=== PATIENT | male | born 1970 | race Caucasian/White ===

== ENCOUNTER 2019-09-30 15:00 | Emergency (ER) | payer OTHER ==
[~2019-09-30] VITALS: Ht 182.9 cm; Wt 83.9 kg
--- NOTE | 2019-09-30 15:10 | NUR ---
BIB RA FROM HOME,LACERATION/AVULSION,RIGHT THUMB. PATIENT A/OX4, BREATHING EVEN AND UNLABORED, NO SOB NOTED. NEEDS ATTENDED, KEPT COMFORTABLE.
[2019-09-30] MEDS ORDERED: TDAP [DIPH/PERTUSSIS/TET] 0.5 ML VIAL IM ONE ×2 (15:23→15:30)
[2019-09-30] MEDS ORDERED: LIDOCAINE HCL/MPF 1% 30 ML VIAL IJ ONE (15:23)
--- NOTE | 2019-09-30 15:28 | NUR ---
[facility] CONSULTANT AT BEDSIDE.
[2019-09-30] MEDS ORDERED: LIDOCAINE HCL/PF 1% 30 ML VIAL TP ONE (15:30)
--- NOTE | 2019-09-30 16:28 | NUR ---
RIGHT THUMB COVERED WITH DRY DRESSING AND APPLIED FINGER SPLINT. PATIENT A/OX4, BREATHING EVEN AND UNLABORED, NO SOB NOTED, NEEDS ATTENDED, KEPT COMFORTABLE. Patient discharged to home in stable condition. Written and verbal after care instructions given. Patient verbalizes understanding of instruction.
--- NOTE | 2019-09-30 16:28 | NUR ---
[facility] REPAIRED BY DR. KUMAR
[2019-09-30 16:36] VITALS: BP 166/97
== END 2019-09-30 16:36 | disposition home or self-care (01) ==
LOC: ER 15:05
DX: S61.011A Laceration without foreign body of right thumb without damage to nail, initial encounter (principal); Z88.6 Allergy status to analgesic agent; Z60.2 Problems related to living alone; W26.8XXA Contact with other sharp object(s), not elsewhere classified, initial encounter; Y93.89 Activity, other specified; Y92.89 Other specified places as the place of occurrence of the external cause; Y99.8 Other external cause status
CPT/HCPCS: 12004; 73140; 90471; 90715; 99283; A6403 ×2; J3490 ×2